=== PATIENT | female | born 1995 | race African-American/Black ===

== ENCOUNTER 2019-05-21 17:45 | Emergency (ER) | payer OTHER, SELFPAY | END 2019-05-21 18:57 | disposition home or self-care (01) | LOC: ERS 17:45 | DX: S29.012A Strain of muscle and tendon of back wall of thorax, initial encounter (principal); V44.6XXA Car passenger injured in collision with heavy transport vehicle or bus in traffic accident, initial encounter | CPT/HCPCS: 99283 ==

== ENCOUNTER 2019-08-18 20:00 | Emergency (ER) | payer SELFPAY ==
--- NOTE | 2019-08-18 20:37 | RAD ---
EXAM: Chest PA and lateral: HISTORY: Chest pain COMPARISON: None FINDINGS: Heart: Normal cardiac silhouette Aorta: Unremarkable Pulmonary vessels: Normal Costophrenic angles: Costophrenic angles are clear. Lungs: No consolidation or masses. Pneumothorax: No pneumothorax Osseous structures: No osseous abnormalities IMPRESSION: No acute cardiopulmonary process.
== END 2019-08-18 20:49 | disposition home or self-care (01) ==
LOC: SCSER 20:00
DX: R07.81 Pleurodynia (principal)
CPT/HCPCS: 71046; 93005; 99406

== ENCOUNTER 2024-08-14 15:39 | Outpatient (CLI) | payer BC, SELFPAY | END 2024-08-14 15:40 | disposition home or self-care (01) | LOC: BICULT 15:39 | PROVIDERS: ATTEND Nurse Practitioner Family | DX: R19.00 Intra-abdominal and pelvic swelling, mass and lump, unspecified site (principal) | CPT/HCPCS: 76856; 93976 ==